=== PATIENT | male | born 1965 | race African-American/Black ===

== ENCOUNTER 2021-12-15 07:29 | Emergency (ER) | payer SELFPAY ==
[~2021-12-15] VITALS: Ht 185.4 cm; Wt 95.0 kg
[2021-12-15] MEDS ORDERED: IBUPROFEN 800MG TABLET PO ONE (08:30)
[2021-12-15] MEDS ORDERED: IBUP-2030 MT (08:50)
[2021-12-15 09:15] VITALS: BP 125/67
== END 2021-12-15 09:22 | disposition home or self-care (01) ==
LOC: ER 07:29
DX: M79.672 Pain in left foot (principal)
CPT/HCPCS: 99281